=== PATIENT | female | born 1990 | race Caucasian/White ===

== ENCOUNTER 2018-04-12 08:01 | Emergency (ER) | payer MEDICAID ==
[~2018-04-12] VITALS: Ht 167.6 cm; Wt 56.7 kg
[2018-04-12 08:40] VITALS: BP 101/53
== END 2018-04-12 08:47 | disposition home or self-care (01) ==
LOC: ER 08:01
DX: O26.892 Other specified pregnancy related conditions, second trimester (principal); J02.9 Acute pharyngitis, unspecified; Z3A.27 27 weeks gestation of pregnancy